=== PATIENT | female | born 1995 | race Two or more races ===

== ENCOUNTER 2025-02-04 19:15 | Emergency (ER) | payer BC, SELFPAY ==
[2025-02-04 19:16] VITALS: BMI 42.7
--- NOTE | 2025-02-04 19:47 | EKG_ITS ---
[facility] Test Date: 2025-02-04 Pat Name: NAJMA FOLEY Department: Room: - Gender: Female [employer] Installer: : 1995 Requested By: Amrit Sidhu Order Number: [id number] Reading MD: Amrit Sidhu Measurements Intervals [place] Rate: 86 P: 4 MI: 140 QRS: 10 QRSD: 107 T: 52 QT: 354 QTc: 424 Interpretive Statements SINUS RHYTHM WITH SINUS ARRHYTHMIA POSSIBLE RIGHT VENTRICULAR CONDUCTION DELAY [RSR (QR) IN V1/V2] No previous ECG available for comparison /store/S0/[id number].pdf
--- NOTE | 2025-02-04 19:48 | PD.EDRME ---
Rapid Medical Screening Exam RME Arrival date/time: 02/04/25 19:15 29 yo f present to ED for c/o of near syncope, weakness, sob. recent C/S I have greeted and performed a focused initial assessment of this patient. A comprehensive ED assessment and evaluation of the patient, analysis of all test results, and completion of the medical decision making process will be conducted by additional ED providers. Chief Complaint: Shortness of Breath/Dyspnea Time Seen by Provider: 02/04/25 19:40
[2025-02-04 19:52] VITALS: BP 121/74; PULSE 89; RESP 18; TEMP 36.6; O2SAT 99
--- NOTE | 2025-02-04 20:15 | PD.EDSOB ---
ED SOB =RME/HPI General Chief Complaint: Shortness of Breath/Dyspnea Stated Complaint: CHEST PAIN, SOB, CSECTION 01/26 Time Seen by Provider: 02/04/25 19:40 Arrival date/time: 02/04/25 19:15 RME / HPI RME / HPI Narrative: 02/04/25 19:15 29 yo f present to ED for c/o of near syncope, weakness, sob. recent C/S I have greeted and performed a focused initial assessment of this patient. A comprehensive ED assessment and evaluation of the patient, analysis of all test results, and completion of the medical decision making process will be conducted by additional ED providers. This section includes all my notes and documentations, including HPI, PE, and ED course. Missael Giron MD HPI: 29 y/o female with Hx of Asthma here with several days of worsening dysnea. Had about 10 days ago. No unusual abdominal pain. No fever. Reports malaise and fatigue. Anthon weak and faint earlier. No other complaints. ROS: All negative except as documented in HPI. Physical Exam: General: Alert and oriented. No acute distress. Eyes: Conjunctivae and lids clear. EOMI. PERRL. ENT: No nasal congestion. Pharynx normal. Tympanic membrane normal bilaterally. Neck: Supple. Heart: RRR. Lungs: No respiratory distress. Moderately decreased air movement with diffuse wheezing. Abdomen: Soft with tenderness consistent with recent . Normal bowel sounds. No distension. No rebound or guarding. Back: No CVA tenderness. Legs: No clubbing, cyanosis, edema. Skin: Warm and dry. Neuro: Alert and oriented X 3. Cranial Nerves II-XII grossly intact. No peripheral motor deficits. I reviewed all diagnostic test results. My interpretation of the EKG is sinus rhythm with no acute ST-T changes. My review of the chest CTA report is NAD. Blood tests and urine tests remarkable for WBC 21.5 and UTI. At this point, diagnoses include Asthma with exacerbation, UTI. Treatment here included IVF, Solumedrol, Benadryl, DuoNeb, and Rocephin. Significant improvement noted. Recommended outpatient treatment. Based on my best medical judgment, made decision no further evaluation or treatment indicated at this time. Patient understands and agrees to the discharge instructions customized and printed, see below. Discharge instructions from Dr. Giron: --After evaluation, your diagnoses include mild asthma attack and severe UTI. --No physical exertion for 3 days to help rest the lungs. ?No smoking or exposure to smoking or pets or dust or cold or humidity. -- Levaquin and Flagyl to kill the germs causing your infections. --Prednisone to help decrease the swelling in the airways. --Albuterol 2 puffs every 4-6 hours today and tomorrow to help keep the airways open. Then as needed for cough or shortness of breath. --We need to flush your urinary tract. For good hydration, increase oral fluid and maintain clear urine. If dark or yellow, increase oral fluid. --And you had severe allergic reaction to Rocephin (same as ceftriaxone), avoid in the future. --See a private doctor on 02/07/25 for recheck. Ask for help until you are completely better. --Seek immediate medical care with worsening or with any concerns. Missael Giron MD Related Data Previous Rx's ?Medication ?Instructions ?Recorded albuterol sulfate 90 mcg/actuation 2 puff inhalation Q6H PRN 02/05/25 aerosol inhaler shortness of breath or wheezing #8.5 grams ciprofloxacin HCl 500 mg tablet 500 mg PO BID #20 tabs 02/05/25 (Cipro) metronidazole 500 mg tablet 500 mg PO BID 10 days #20 tabs 02/05/25 Allergies Allergy/AdvReac Type Severity Reaction Status Date / Time ceftriaxone (From Rocephin) Allergy Intermediate Hives Verified 02/05/25 01:13 Review of Systems Review of Systems Systems Reviewed: All systems reviewed, normal except as documented Narrative Review of Systems: Refer to HPI above. Past Medical History Past Medical History RESPIRATORY: Positive Asthma ED Exam Narrative Physical exam: Refer to HPI above. Course Quality Measures Possible source: genitourinary Blood cultures ordered: yes Antibiotic ordered: Yes Pertinent labs: 02/04/25 02/04/25 22:30 22:36 Lactic Acid 0.9 mMol/L (0.4-2.0) Procalcitonin 0.11 ng/ml (0.0-0.49) sepsis Orders Category Date Time Status Bedside COVID-19 Antigen Test NOW Care 02/04/25 20:16 Completed Bedside Influenza A&B Antigen Test NOW Care 02/04/25 20:[address] Screening NOW Care 02/04/25 20:23 Completed Saline [Insert IV] NOW Care 02/04/25 20:[address] angio chest Stat Exams 02/04/25 20:23 Completed EKG (ED Only) Stat Exams 02/04/25 19:47 Draft BNP [B-Type Natriuretic Peptide] Stat Lab 02/04/25 20:45 Completed Blood Culture (Lab) Stat Lab 02/04/25 22:36 Results CBC Stat Lab 02/04/25 20:45 Completed CMP [Comprehensive Metabolic Panel] Stat Lab 02/04/25 20:45 Completed CRP [C-Reactive Protein] Stat Lab 02/04/25 22:30 Completed D-Dimer Stat Lab 02/04/25 20:45 Completed ESR [Sed Rate (ESR)] Stat Lab 02/04/25 22:30 Completed Lactate (Lactic Acid) Stat Lab 02/04/25 22:36 Completed Magnesium Stat Lab 02/04/25 20:45 Completed Procalcitonin Stat Lab 02/04/25 22:30 Completed RSV [Respiratory Syncytial Virus Ag] Stat Lab 02/05/25 00:10 Completed Troponin I Stat Lab 02/04/25 20:45 Completed UA, C/S IF [Urinalysis, C/S if Indicated] Stat Lab 02/04/25 22:10 Completed Urine Culture Stat Lab 02/04/25 22:10 Completed Albuterol/Ipratr Rt Jackie [Duoneb Rt Jackie] Med 02/04/25 20:15 Discontinued 3 ml INH X1 ONE DiphenhydrAMINE INJ [Benadryl Inj] Med 02/05/25 00:58 Discontinued 50 mg IV X1 STA MethylPREDNISolone.* [SoluMEDROL Inj] Med 02/04/25 20:15 Discontinued 125 mg IM X1 ONE MethylPREDNISolone.* [SoluMEDROL Inj] Med 02/05/25 00:58 Discontinued 125 mg IM X1 ONE Metoprolol Tartrate [Lopressor] Med 02/05/25 00:56 Discontinued 50 mg PO X1 ONE Sodium Chloride 0.9% 1000 ml [Ns] 1,000 ml Med 02/04/25 20:18 Discontinued IV 999 mls/hr Sodium Chloride 0.9% 1000 ml [Ns] 1,000 ml Med 02/05/25 00:58 Discontinued IV 999 mls/hr cefTRIAXone [Rocephin] 1,000 mg Med 02/05/25 00:26 Discontinued SODIUM CHLORIDE 0.9% (Popper) [Ns 0.9% (P)] 50 ml IV X1 Vital Signs Vital signs: Vital Signs Temperature 97.8 F 02/04/25 19:52 Pulse Rate 89 02/04/25 19:52 Respiratory Rate 18 02/04/25 19:52 Blood Pressure 121/74 02/04/25 19:52 Pulse Oximetry (%) 99 02/04/25 19:52 Oxygen Delivery Method Room Air 02/04/25 19:52 Shortness of Breath / Dyspnea MDM Narrative MDM Narrative:: Scribe Attestation: Sophia Hanna, am scribing for and in the presence of Dr. Giron. Provider Notation: Although this document has been carefully reviewed, there may still be some phonetic and other typographical errors. These errors are purely grammatical due to imperfections in the software program and should not be construed in any way to compromise the substance of the patient's medical care during this visit. Patient data External records reviewed:: [facility] previous records (No prior ED records available for review.) Clinical information provided by:: patient Social determinants that could affect healthcare access:: none Patient has the following chronic illnesses:: Asthma How is presenting disease/condition affected by chronic disease/condition?: exacerbated by Evaluation data The following diagnostics were reviewed and interpreted by me:: lab results, radiology exam(s) and EKG tracing(s) Lab and/or radiology exams considered but not ordered:: None Interpretation Summary: I reviewed all diagnostic test results. My interpretation of the EKG is sinus rhythm with no acute ST-T changes. My review of the chest CTA report is NAD. Blood tests and urine tests remarkable for WBC 21.5 and UTI. Medications / Prescriptions Medications or Prescriptions considered but not ordered:: None Medication administrations:: Medication Administration History Discontinued Medications Albuterol/Ipratropium (Albuterol/Ipratropium (Duoneb) Rt Jackie 3 Ml Nebu) 3 ml INH X1 ONE Stop: 02/04/25 20:16 Last Admin: 02/04/25 20:36 Dose: 3 ml Documented By: LIYAH Diphenhydramine HCl (Diphenhydramine Inj 50 Mg/Ml Vial) 50 mg IV X1 STA Stop: 02/05/25 00:59 Last Admin: 02/05/25 01:03 Dose: 50 mg Documented By: MAYNOR Sodium Chloride (Ns) 1,000 mls @ 999 mls/hr IV .Q1H1M ONE Stop: 02/04/25 21:18 Last Infusion: 02/05/25 00:15 Dose: Infused Documented By: Admin: 02/04/25 20:32 Dose: 999 mls/hr Documented By: LEOBARDO Ceftriaxone Sodium 1,000 mg/ (Sodium Chloride) 50 mls @ 100 mls/hr IV X1 ONE Stop: 02/05/25 00:55 Last Admin: 02/05/25 00:47 Dose: 100 mls/hr Documented By: MAYNOR Sodium Chloride (Ns) 1,000 mls @ 999 mls/hr IV .Q1H1M ONE Stop: 02/05/25 01:58 Last Admin: 02/05/25 01:04 Dose: 999 mls/hr Documented By: MAYNOR Methylprednisolone Sodium Succinate (Methylprednisolone Sod Succ 62.5 Mg/Ml 2ml Vial) 125 mg IM X1 ONE Stop: 02/04/25 20:16 Last Admin: 02/04/25 20:34 Dose: 125 mg Documented By: LEOBARDO Methylprednisolone Sodium Succinate (Methylprednisolone Sod Succ 62.5 Mg/Ml 2ml Vial) 125 mg IM X1 ONE Stop: 02/05/25 00:59 Last Admin: 02/05/25 01:03 Dose: 125 mg Documented By: MAYNOR Metoprolol Tartrate (Metoprolol Tartrate 25 Mg Tablet) 50 mg PO X1 ONE Stop: 02/05/25 00:57 Last Admin: 02/05/25 01:55 Dose: Not Given Documented By: MAYNOR Non-Admin Reason: Discontinued Treatment here included IVF, Solumedrol, Benadryl, DuoNeb, and Rocephin. Consultations Consultation(s) initiated? (list below): No Diagnosis Shortness of Breath Differential Diagnosis: acute exacerbation of chronic obstructive airways disease, congestive heart failure, community acquired pneumonia, asthma with exacerbation, pulmonary embolism and other (UTI vs Pyelonephritis vs Pneumonia vs Cystitis) Most likely diagnosis given after review of the tests above:: UTI, Asthma with exacerbation Admission Indicated Admission indicated?: not indicated Explain why admission is indicated or not indicated:: With significant improvement, there was no indication for admission. Admission Request Was there a request for admission?: No Disposition Plan Disposition Plan: Discharge Discharge Attestation Discharge Attestation: The patient and all family members were given an opportunity to ask questions and understood the discharge instructions. Discharge instructions specifically effects, indications for sooner follow up or return to the emergency department, and the expected course of current diagnosis. Patient condition: Stable Discharge Plan Plan Patient Disposition: HOME (Self Care) Prescriptions/Referrals Prescriptions/Med Rec: New metronidazole 500 mg tablet 500 mg PO BID 10 Days Qty: 20 0RF ciprofloxacin HCl [Cipro] 500 mg tablet 500 mg PO BID Qty: 20 0RF albuterol sulfate 90 mcg/actuation HFA aerosol inhaler 2 puff inhalation Q6H PRN (Reason: shortness of breath or wheezing) Qty: 8.5 0RF Referrals: Nile Lawton PA-C [Primary Care Provider] - In 1 week Problem List Clinical Impression: Asthma with exacerbation, UTI (urinary tract infection) Patient/Caregiver Discharge Instructions Discharge Activity: activity as tolerated Education Materials: ED Asthma, Acute (Adult), ED CYSTITIS Female Adult Additional Instructions: Discharge instructions from Dr. Giron: --After evaluation, your diagnoses include mild asthma attack and severe UTI. --No physical exertion for 3 days to help rest the lungs. ?No smoking or exposure to smoking or pets or dust or cold or humidity. -- Levaquin and Flagyl to kill the germs causing your infections. --Prednisone to help decrease the swelling in the airways. --Albuterol 2 puffs every 4-6 hours today and tomorrow to help keep the airways open. Then as needed for cough or shortness of breath. --We need to flush your urinary tract. For good hydration, increase oral fluid and maintain clear urine. If dark or yellow, increase oral fluid. --And you had severe allergic reaction to Rocephin (same as ceftriaxone), avoid in the future. --See a private doctor on 02/07/25 for recheck. Ask for help until you are completely better. --Seek immediate medical care with worsening or with any concerns. Print Language: Setswana Stand Alone Forms: [employer]a Award Info., Patient Portal Info Letter
--- NOTE | 2025-02-04 20:23 | XR_ITS ---
Examination: CTA chest with intravenous contrast 2-D reconstructions 3-D reconstructions, vascular Date and time of exam: February 04, 2025 1002 hrs. Indications: Chest pain shortness of breath beginning one week ago CTDI: vol (mGy) 15 DLP: (mGycm) 588 Technique: Multiple axial sections of the thorax have been obtained. 3 mm slice thickness, from below the hemidiaphragms to above the apices of the lungs. Mediastinal and lung density settings have been obtained. 2-D sagittal and coronal reconstructions. 3-D angiographic renderings, 3-D volume renderings, 3D post processing, vascular maximum intensity projections obtained. Contrast administered is 100 cc Isovue-370 intravenous. Low dose protocols were performed. One or more of the following dose reduction techniques were used; automated exposure control, adjustment of the mA and/or KV according to patient size, use of iterative reconstruction technique. Findings: No thoracic aortic aneurysm dilatation No pulmonary artery filling defects No pneumonia or pulmonary edema or pleural disease No visualized liver or splenic lesion No gallstones noted No pancreatic mass Kidneys partially visualized no hydronephrosis No cystic structures intact Impression: Negative for pulmonary emboli No pneumonia, pulmonary edema or pleural disease
[2025-02-04] MEDS: SODIUM CHLORIDE 0.9% 1000 ML 1,000 ML 999 ML IV (20:32)
[2025-02-04] MEDS: MethylPREDNISolone SOD SUCC 62.5 MG/ML 2ML VIAL 125 MG IM (20:34)
[2025-02-04] MEDS: ALBUTEROL/IPRATROPIUM (Duoneb) RT SOL 3 ML NEBU INH (20:36)
[2025-02-04 20:38] VITALS: PULSE 89; RESP 14; O2SAT 99
[2025-02-04 21:26] LABS: Basophils # (Auto) 0.1 Thou/mm3 (0.0-0.2); Basophils % (Auto) 1 % (0-2.5); Eosinophils # (Auto) 0.1 Thou/mm3 (0.0-0.5); Eosinophils % (Auto) 1 % (0-10); Hematocrit 36.7 % (36.0-46.0); Hemoglobin 11.5 g/dL (12.0-16.0); Immature Granulocytes % (Auto) 2 % (0-0); Immature Granulocytes Auto 0.45 Thou/mm3 (0.00-0.00); Lymphocytes # (Auto) 1.7 Thou/mm3 (1.0-4.8); Lymphocytes % (Auto) 8 % (10-50); Mean Corpuscular HGB Conc 31.3 g/dl (31.0-37.0); Mean Corpuscular Volume 83 fL (80-100); Monocytes # (Auto) 0.8 Thou/mm3 (0.0-0.8); Monocytes % (Auto) 4 % (0-12); Neutrophils # (Auto) 18.3 Thou/mm3 (1.8-7.7); Neutrophils % (Auto) 85 % (37-80); Nucleated Red Blood Cell % 0 /100 WBC (0); Platelet Count 560 Thou/mm3 (140-440); RDW Standard Deviation 43.6 fL (36.4-46.3); Red Blood Count 4.42 Miln/mm3 (4.00-5.20); White Blood Count 21.5 Thou/mm3 (3.6-11.0)
[2025-02-04 21:48] LABS: Alanine Aminotransferase 19 U/L (10-49); Albumin, Serum 4.1 gm/dL (3.5-5.0); Albumin/Globulin Ratio 1.3 (1.2-2.2); Alkaline Phosphatase 100 U/L (46-116); Anion Gap 8 (7-16); Aspartate Amino Transferase 51 U/L (0-34); BUN/Creatinine Ratio 17 Ratio (12-20); Bilirubin,Total 0.4 mg/dL (0.3-1.2); Blood Urea Nitrogen 12 mg/dL (9-23); Calcium 8.7 mg/dL (8.3-10.6); Calcium (Corrected) 8.7 mg/dL (8.5-10.1); Carbon Dioxide 25.5 mMol/L (20.0-31.0); Chloride 109 mMol/L (98-107); Creatinine (Component) 0.7 mg/dL (0.6-1.3); Estimated Creatinine Clearance 143.2 mL/min (>60); Globulin 3.1 gm/dL (2.3-3.5); Glucose 82 mg/dL (74-106); Magnesium 2.1 mg/dL (1.6-2.6); Osmolality,Calculated 281 (275-295); Potassium 3.9 mMol/L (3.4-5.1); Sodium 142 mMol/L (136-145); Total Protein 7.2 gm/dL (5.7-8.2); Troponin I < 0.002 ng/mL (0.0-0.045); eGFR > 60 See Note
[2025-02-04 22:16] LABS: B-Type Natriuretic Peptide 20 pg/mL (0-100)
[2025-02-04 22:21] LABS: D-Dimer 864 ng/mL (<600)
[2025-02-04 22:46] LABS: Collection Type, Urine Clean Catch
[2025-02-04 22:47] LABS: Lactate (Lactic Acid) 0.9 mMol/L (0.4-2.0)
[2025-02-04 23:38] LABS: Sed Rate (ESR) 43 mm/hr (0-20)
[2025-02-04 23:51] LABS: Bacteria,Urine Rare; Bilirubin,Urine Negative (Negative); Blood,Urine 3+ (Negative); Clarity,Urine Turbid (Clear/Hazy); Color,Urine Yellow (Lt Yel-Yel); Glucose, Urine Negative (Negative); Ketones,Urine Negative (Negative); Leukocyte Esterase,Urine Positive (Negative); Nitrite,Urine Negative (Negative); Protein,Urine 1+ (Neg - Trace); RBC,Urine 27 /hpf (0-3); Specific Gravity,Urine 1.029 (1.001-1.035); Squamous Epithelial Cell,Urine 3 /hpf (0-5); WBC,Urine 840 /hpf (0-5)
[2025-02-04 23:53] LABS: Culture Indicated,Urine Yes
[2025-02-05 00:05] VITALS: BP 145/76; PULSE 88; RESP 19; TEMP 36.6; O2SAT 99
[2025-02-05] MEDS: cefTRIAXone 1,000 MG in SODIUM CHLORIDE 0.9% (Popper) 50 ML 100 MG IV (00:47)
[2025-02-05] MEDS: DiphenhydrAMINE INJ 50 MG/ML VIAL IV (01:03)
[2025-02-05] MEDS: MethylPREDNISolone SOD SUCC 62.5 MG/ML 2ML VIAL 125 MG IM (01:03)
[2025-02-05] MEDS: SODIUM CHLORIDE 0.9% 1000 ML 1,000 ML 999 ML IV (01:04)
[2025-02-05 01:29] LABS: Respiratory Syncytial Virus Ag Negative (Negative)
[2025-02-05 02:06] LABS: Procalcitonin 0.11 ng/ml (0.0-0.49)
[2025-02-05 02:10] VITALS: BP 130/84; PULSE 89; RESP 22; TEMP 36.6; O2SAT 98
[2025-02-05 02:19] LABS: C-Reactive Protein 0.9 mg/dL (0.0-0.9)
== END 2025-02-05 02:18 | disposition home or self-care (01) ==
PROVIDERS: Emergency Provider Emergency Medicine; PCP Physician Assistant
DX: J45.901 Unspecified asthma with (acute) exacerbation (principal); N39.0 Urinary tract infection, site not specified; I49.8 Other specified cardiac arrhythmias
CPT/HCPCS: 36415; 71275; 80053; 81001; 83605; 83735; 83880; 84145; 84484; 85025; 85379; 85652; 86140; 87040; 87077; 87086; 87186; 87400; 87634; 87811; 94640; 96372; 99285; A4649; A9270; J0696; J1200; J2919; J7030; J7050; Q9967